=== PATIENT | male | born 1960 | race Caucasian/White ===

== ENCOUNTER 2024-02-23 06:22 | Day surgery (SDC) | payer OTHER ==
[~2024-02-23] VITALS: Ht 172.7 cm; Wt 92.2 kg
[~2024-02-23 06:22] MED LIST: COQ1050 MG PO; LIPITOR40 MG PO; MIDAZOLAM HCL 5 MG/5 ML VIAL IV PRN; NORVASC5 MG PO; TYLENOL325 M1 PO; ZESTRIL10 MG PO; fentaNYL citrate 100 MCG/2 ML VIAL IV PRN
[2024-02-23 06:34] VITALS: BP 110/71
[2024-02-23] MEDS ORDERED: MIDAZOLAM HCL 5 MG/5 ML VIAL ONE (06:47)
[2024-02-23] MEDS ORDERED: fentaNYL citrate 100 MCG/2 ML VIAL ONE (06:47)
[2024-02-23] MEDS ORDERED: LIDOCAINE HCL 1% 5 ML SDV INJ ONE (07:00)
[2024-02-23] MEDS ORDERED: LACTATED RINGER'S 1,000 ML IV SCH (07:00)
[2024-02-23] MEDS ORDERED: IBLOOD GLUCOSE TEST STRIP 1 EA TEST VI PRN (07:00)
--- NOTE | 2024-02-23 08:25 | NUR ---
02/23/24 0825 Emily Hernandez 0821-PT TO PACU IN SF POSITION. EYES OPEN. PT DENIES PAIN AND NAUSEA. BREATHING EASY AND UNLABORED. SPO2 >95% ON 3 L O2 VIA NC. PT ENCOURAGED TO PASS GAS. PT REPOSITIONS SELF ON LEFT SIDE.
[2024-02-23 09:05] VITALS: BP 118/74
--- NOTE | 2024-02-23 19:29 | OR ---
[facility] [address], [place] [address] Signed DATE OF OPERATION: 02/23/2024 SURGEON: Dariel Sandoval MD PREOPERATIVE DIAGNOSIS: Colon screening. POSTOPERATIVE DIAGNOSIS: Polyps x2; flat polyp of cecum and pedunculated polyp of sigmoid at 25 cm. PROCEDURES: 1. Total colonoscopy to cecum with mucosal lift excision of flat polyp of cecum including Endo byron tattoo dye and application of hemoclip. 2. Hot snare polypectomy, sigmoid polyp. ANESTHESIA: Intravenous sedation; fentanyl 100 mcg and Versed 5 mg. INDICATIONS: This 64-year-old white man is a patient of ASHOK Garcia. He has never undergone colon evaluation in the past. He has no symptoms of bleeding, diarrhea, or constipation and no family history of colon cancer. He is admitted to undergo screening colonoscopy. He understands the risk of bleeding, infection, and perforation. FINDINGS: The prep was good. Complete colonoscopy was undertaken to the cecum. There was an irregular relatively flat polyp of the cecum that was excised with mucosal lift technique with application of a tattoo dye, and ultimately a hemoclip and a pedunculated polyp at 25 cm in the sigmoid, which was excised with hot snare polypectomy technique. Dye was applied there as well. There were no other findings of note. PROCEDURE IN DETAIL: The patient was brought to the endoscopy suite and placed in lateral decubitus position given intravenous sedation to the point of slurred speech and nystagmus. Digital rectal examination was normal. An Olympus video colonoscope was passed into the rectum and manipulated throughout the colon, noting sigmoid pedunculated polyp, which was to be attended to later. The scope was advanced beyond this ultimately to the cecum. The ileocecal valve and appendiceal orifice were easily identified. We found in the cecum was a flat type polyp, for which Electronically Signed By: ADRIEL SANDOVAL MD 02/23/24 1929 PATIENT NAME: RICHAR MCGARRY OPERATIVE REPORT DATE OF : 60 REPORT #: [id number] PHYSICIAN: DARIEL SANDOVAL MD PCP: SUZY ALEXANDER REPORT IS CONFIDENTIAL AND NOT TO BE RELEASED WITHOUT AUTHORIZATION [facility] [address], [place] [address] Signed photographs were taken. A mucosal lift technique was deemed most advisable under the circumstances. Using a sclerotherapy needle and spot endoscopic tattoo dye, the central portion of the polyp was injected elevating the mucosa away from the underlying serosa. A cold snare approach was undertaken in this situation to avoid perforation. This did allow for excision of the polyp largely, but additional excision was undertaken with cold morcellation technique. Complete extirpation of the polyp was noted. There was minimal oozing. Irrigation was undertaken and pressure applied showing no further bleeding. Two separate hemoclips were used to oppose the mucosa in the area to assure no bleeding. The scope was then withdrawn and examination throughout showed no sign of abnormality until 25 cm from the anal verge, where the previous polyp was identified. This was pedunculated and about a centimeter in size. This was excised with hot snare polypectomy technique without problem. Additional application of spot tattoo was applied to that site as well. Further withdrawal had retroflexed view was undertaken showing no sign of abnormalities. Scope was removed. The patient was taken to the recovery room in good condition. CONCLUDING DIAGNOSIS: Polyps x2. PLAN: Recommend repeat colonoscopy in three years or sooner if clinically indicated. He will return to the ongoing care of ASHOK Garcia. MD DIONISIO Hopson/MARIAELENAL /[id number] cc: ASHOK Garcia Copies: SUZY ALEXANDER ~ Electronically Signed By: DARIEL SANDOVAL MD 02/23/24 1929 PATIENT NAME: RICHAR MCGARRY BRAYAN OPERATIVE REPORT DATE OF : 60 REPORT #: [id number] PHYSICIAN: DARIEL SANDOVAL MD PCP: SUZY ALEXANDER REPORT IS CONFIDENTIAL AND NOT TO BE RELEASED WITHOUT AUTHORIZATION
--- NOTE | 2024-02-26 14:49 | PATH ---
[facility] [address] [place], [place] [address] Signed SPECIMEN(S): A CECUM COLON POLYP SPECIMEN(S): B RECTOSIGMOID POLYP SPECIMEN SOURCE: A. CECUM COLON POLYP B. RECTOSIGMOID POLYP CLINICAL HISTORY: Initial colon screening. Post: Cecal polyp, rectosigmoid polyp. FINAL PATHOLOGIC DIAGNOSIS: A. Colon, cecum, polyp, biopsy: - Multiple fragments of tubular adenoma. B. Rectosigmoid, polyp, biopsy: - Tubular adenoma. COMMENT: There is no evidence of high grade dysplasia or malignancy. TWK MICROSCOPIC EXAMINATION: Histologic sections of all submitted blocks are examined by light microscopy. These findings, together with the gross examination, support the pathologic diagnosis. GROSS DESCRIPTION: A. The specimen, labeled and designated "David, Florencio, cecum colon polyp," is received in formalin and consists of multiple wong soft tissue fragments, 0.1-0.3 cm. Entirely submitted in (A1). B. The specimen, labeled and designated "David, G, rectosigmoid polyp," is received in formalin and consists of one wong soft tissue fragment, 1.0 cm. Entirely submitted in (B1). HS (under the direct supervision of a pathologist) The Gross Description was prepared using a voice recognition system. The report was reviewed for accuracy; however, sound-alike word errors, addition and/or deletions may occur. If there is any question about this report, please contact Client Services. ADDITIONAL NOTES: Immunohistochemical and/or in situ hybridization studies if performed in this case included appropriate positive controls that reacted as expected. This PATIENT NAME: RICHAR MCGARRY PATHOLOGY DATE OF : 60 REPORT #: [id number] PHYSICIAN: ROBERTH COBB PCP: SUZY ALEXANDER REPORT IS CONFIDENTIAL AND NOT TO BE RELEASED WITHOUT AUTHORIZATION [facility] [address] [place] [place] [address] Signed test was developed and its performance characteristics determined by [facility]. It has not been cleared or approved by the U.S. Food and Drug Administration. The FDA has determined that such clearance or approval is not necessary. This test is used for clinical purposes. It should not be regarded as investigational or for research. [facility] is certified under the Clinical Laboratory Improvement Amendments of 1988 (CLIA) as qualified to perform high complexity clinical laboratory testing. PERFORMING LABORATORY: Technical component was performed by [facility], [address] [place] [id number] (CLIA# [id number]). Professional interpretation was performed by [facility], [address] [place] [address] (CLIA#:[id number]). Diagnostician: Michael Watters MD Pathologist Electronically Signed 02/26/2024 Copies: ~ PATIENT NAME: RICHAR MCGARRY PATHOLOGY DATE OF : 60 REPORT #: [id number] PHYSICIAN: ROBERTH PATHOLOGY PCP: SUZY ALEXANDER REPORT IS CONFIDENTIAL AND NOT TO BE RELEASED WITHOUT AUTHORIZATION
== END 2024-02-23 09:00 | disposition home or self-care (01) ==
LOC: DS 06:22 → OPS 06:22 → DS 07:30 → OPS 09:00
PROVIDERS: ATTEND Surgery
PROC: 0DBN8ZZ Excision of Sigmoid Colon, Via Natural or Artificial Opening Endoscopic (ICD-10-PCS; 2024-02-23)
PROC: 3E0H8KZ Introduction of Other Diagnostic Substance into Lower GI, Via Natural or Artificial Opening Endoscopic (ICD-10-PCS; 2024-02-23)
PROC: 0DBH8ZZ Excision of Cecum, Via Natural or Artificial Opening Endoscopic (ICD-10-PCS; principal; 2024-02-23 07:30)
DX: Z12.11 Encounter for screening for malignant neoplasm of colon (principal); D12.0 Benign neoplasm of cecum; D12.7 Benign neoplasm of rectosigmoid junction; I10 Essential (primary) hypertension; Z98.890 Other specified postprocedural states
CPT/HCPCS: 99153; G0500; J2250; J3010; J7121